=== PATIENT | female | born 1970 | race African-American/Black ===

== ENCOUNTER 2017-01-12 15:36 | Emergency (ER) | payer OTHER ==
[2017-01-12 15:48] VITALS: BP 132/87
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
[2017-01-12] MEDS: ZOFRAN IM ONE (16:24)
[2017-01-12] MEDS: MORPHINE IM ONE (16:24)
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
== END 2017-01-12 17:35 | disposition home or self-care (01) ==
LOC: ED 15:36
DX: R10.9 Unspecified abdominal pain (principal); M54.6 Pain in thoracic spine; M54.5 Low back pain; J45.909 Unspecified asthma, uncomplicated; V49.49XA Driver injured in collision with other motor vehicles in traffic accident, initial encounter; Y93.9 Activity, unspecified; Y92.9 Unspecified place or not applicable; Y99.9 Unspecified external cause status
CPT/HCPCS: 72125; 72131; 74176; 96372; 99284; J2270; J2405